=== PATIENT | male | born 1970 | race Caucasian/White ===

== ENCOUNTER 2022-12-19 00:51 | Outpatient (CLI) | payer BC, SELFPAY ==
[2022-12-19 12:39] LABS: Hemoglobin A1C 5.5 % (<5.7)
[2022-12-19 12:40] LABS: Calculated LDL 160 mg/dL (<100); Cholesterol 223 mg/dL (<200); HDL Cholesterol 50 mg/dL (40-60); Triglyceride 65 mg/dL (<150)
== END 2022-12-19 00:52 | disposition home or self-care (01) ==
LOC: LOS 00:52
PROVIDERS: PCP Nurse Practitioner Family; Visit Provider Nurse Practitioner Family
DX: Z13.1 Encounter for screening for diabetes mellitus (principal); Z13.220 Encounter for screening for lipoid disorders
CPT/HCPCS: 36415; 80061; 83036

== ENCOUNTER 2024-12-21 09:28 | Outpatient (CLI) | payer BC, SELFPAY ==
[2024-12-21 13:55] LABS: Calculated LDL 104 mg/dL (<100); Cholesterol 180 mg/dL (<200); HDL Cholesterol 59 mg/dL (40-60); Triglyceride 87 mg/dL (<150)
[2024-12-21 17:33] LABS: Hemoglobin A1C 5.5 % (<5.7)
[2024-12-21 20:17] LABS: PSA, Screening 1.2 ng/mL (<=3.5)
== END 2024-12-21 09:29 | disposition home or self-care (01) ==
LOC: LOS 09:28
PROVIDERS: PCP Nurse Practitioner Family; Referring Provider Nurse Practitioner Family; Visit Provider Nurse Practitioner Family
DX: Z13.220 Encounter for screening for lipoid disorders (principal); Z13.1 Encounter for screening for diabetes mellitus; Z12.5 Encounter for screening for malignant neoplasm of prostate; I10 Essential (primary) hypertension; E78.2 Mixed hyperlipidemia
CPT/HCPCS: 36415; 80061; 84153; 83036